=== PATIENT | male | born 1960 | race Caucasian/White ===

== ENCOUNTER 2019-08-29 10:47 | Day surgery (SDC) | payer OTHER ==
[~2019-08-29] VITALS: Ht 165.1 cm; Wt 86.3 kg
[2019-08-29 11:57] VITALS: BP 139/83
[2019-08-29] MEDS ORDERED: SODIUM CHLORIDE 0.9% 1,000 ML IV STA (11:58)
[2019-08-29] MEDS ORDERED: ROSU40TA PO (12:00)
[2019-08-29] MEDS ORDERED: METO50TA82 PO (12:00)
[2019-08-29] MEDS ORDERED: LINA5TAB PO (12:00)
[2019-08-29] MEDS ORDERED: AMLO-150 PO (12:00)
[2019-08-29] MEDS ORDERED: SODIUM CHLORIDE 0.9% 1,000 ML IV SCH (12:30)
[2019-08-29 12:32] LABS: PROTHROMBIN TIME 10.6 Seconds (9.6-11.5)
[2019-08-29] MEDS ORDERED: FENTANYL PF 100 MCG/2ML ONE (12:49)
[2019-08-29] MEDS ORDERED: MIDAZOLAM 1 MG/ML, 5ML ONE (12:49)
[2019-08-29] MEDS ORDERED: NALOXONE 1 MG/ML, 2ML ONE (12:50)
== END 2019-08-29 15:30 | disposition home or self-care (01) ==
LOC: OUT 10:47
PROVIDERS: ATTEND Internal Medicine Nephrology
DX: E11.21 Type 2 diabetes mellitus with diabetic nephropathy (principal); I12.9 Hypertensive chronic kidney disease with stage 1 through stage 4 chronic kidney disease, or unspecified chronic kidney disease; E11.22 Type 2 diabetes mellitus with diabetic chronic kidney disease; N17.9 Acute kidney failure, unspecified; N18.3 Chronic kidney disease, stage 3 (moderate); E78.5 Hyperlipidemia, unspecified; I25.10 Atherosclerotic heart disease of native coronary artery without angina pectoris; E83.51 Hypocalcemia; E87.2 Acidosis; E66.9 Obesity, unspecified; Z68.33 Body mass index [BMI] 33.0-33.9, adult; Z79.899 Other long term (current) drug therapy; Z98.890 Other specified postprocedural states
CPT/HCPCS: 36415; 50200; 77012; 85610; 88300; 99156; 99157; J2250; J3010; J7030; J2310